=== PATIENT | male | born 1975 | race Caucasian/White ===

== ENCOUNTER 2019-12-27 23:34 | Emergency (ER) | payer BC ==
[~2019-12-27] VITALS: Ht 165.1 cm; Wt 104.1 kg
[2019-12-28 00:34] LABS: BASOPHIL % 0.5 % (0-2); PLATELET COUNT 272 x10^3mcL (130-400); RED CELL DISTRIBUTION WIDTH 12.6 % (11.5-14.5)
[2019-12-28 00:36] LABS: CALCIUM 9.4 mg/dL (8.5-10.1); CARBON DIOXIDE 29.6 mmol/L (21-32); CHLORIDE SERUM 102 mmol/L (98-107); CREATININE SERUM 1.2 mg/dL (0.7-1.3); GFR1 > 60 mL/min; GLUCOSE SERUM 129 mg/dL (74-106); POTASSIUM SERUM 3.3 mmol/L (3.5-5.1); SODIUM SERUM 138 mmol/L (136-145)
[2019-12-28 00:39] LABS: ALBUMIN 3.6 g/dL (3.4-5.0); ALKALINE PHOSPHATASE 61 U/L (46-116); ALT/SGPT 38 U/L (16-63); AST/SGOT 23 U/L (15-37); BILIRUBIN TOTAL 0.55 mg/dL (0.20-1.00)
[2019-12-28 04:00] VITALS: BP 135/88
== END 2019-12-28 04:00 | disposition home or self-care (01) ==
LOC: ED 23:34
DX: R07.89 Other chest pain (principal); Z98.890 Other specified postprocedural states
CPT/HCPCS: 83880; Q0092